=== PATIENT | male | born 1980 | race Caucasian/White ===

== ENCOUNTER → 2020-12-19 12:56 | Outpatient (CLI) | payer OTHER, SELFPAY ==
--- NOTE | 2020-12-19 | DI.ECHO.S_ITS ---
[facility]---------+ [facility] +---------+ : : [address] : [address] : : : : [id number] : : : : Phone: [phone]---------+ Echocardiogram Report + + :Name: LUCIANO VELEZ Study Date: 12/19/2020 Height: 71 in : :[facility] ReadingLocation: Weight: 232 lb : : Gender: Male BSA: 2.2 m2 : :: 1980 Age: 40 yrs BP: 136/97 mmHg: :Reason For Study: RIGHT BUNDLE BRANCH BLOCK : :Ordering Physician: LASHON, : :LUCY Performed By: Virginia Mccormack : :Referring: LUCY MARISCAL : + + Interpretation Summary 1) Normal left ventricular thickness, size, wall motion, and systolic function (EF 60-65%). 2) Normal right ventricular size and function. 3) No significant valvular abnormalities. 4) No prior Echo available for comparison. Procedure: A two-dimensional transthoracic echocardiogram with color flow and Doppler was performed. The study quality was technically adequate. There is no prior echocardiogram noted for this patient. The patient was in sinus rhythm with heart rates between 67-72 bpm during the exam. Left Ventricle: The left ventricle is normal in size and wall thickness. The ejection fraction is estimated to be 55-60%. Left ventricular systolic function appears normal without focal wall motion abnormalities. Diastolic parameters suggest probable normal left ventricular diastolic function and normal filling pressures. Right Ventricle: The right ventricle is normal in size and function. The right ventricular systolic function is normal. Atria: The left atrial size is normal. Right atrial size is normal. There is no Doppler evidence for an interatrial shunt. Mitral Valve: The mitral valve is normal in structure and function. There is mild mitral regurgitation. Aortic Valve: The aortic valve is trileaflet. The aortic valve opens well. There is no aortic valve stenosis. No aortic regurgitation is present. Tricuspid Valve: The tricuspid valve is normal in structure and function. There is mild tricuspid regurgitation. The right ventricular systolic pressure is estimated to be at least 22 mmHg based on an estimated right atrial pressure of 3 mm Hg. Pulmonic Valve: The pulmonic valve leaflets are thin and pliable; valve motion is normal. There is mild pulmonic regurgitation. Great Vessels: The aortic root is normal size. The dimensions of the ascending aorta are normal. The IVC is of normal diameter and collapses greater than 50% with a sniff. This suggests a low right atrial pressure of 3 mm Hg. Pericardium/ Pleura There is no pericardial effusion. There is no pleural effusion. MMode/2D Measurements & Calculations LVIDd: 5.4 cm LVOT diam: 2.4 cm LVIDs: 3.8 cm Ao root diam: 3.8 cm FS: 30.0 % asc Aorta Diam: 3.0 cm IVSd: 0.97 cm Ao Arch Diam (Prox Trans): 2.6 cm LVPWd: 0.80 cm LV tucker. diameter/BSA (cm/m^2): 2.4 LV sys. diameter/BSA (cm/m^2): 1.7 LA A2 area: 19.7 cm2 RA long axis: 5.1 cm LA A4 area: 14.6 cm2 RA area: 16.6 cm2 LA length (vol): 4.7 cm RA vol: 46.4 ml LA vol: 52.1 ml RA : 20.6 ml/m2 LA vol index: 23.2 ml/m2 IVC diam: 1.2 cm RVD1 (basal): 3.9 cm TAPSE: 2.5 cm Doppler Measurements & Calculations Ao V2 max: 109.6 cm/sec LVOT Max Christophe: 64.7 cm/sec Ao V2 mean: 83.5 cm/sec LV V1 max P.7 mmHg Ao max P.8 mmHg LV V1 VTI: 14.3 cm Ao mean P.0 mmHg YESSICA(I,D): 2.7 cm2 Ao V2 VTI: 24.5 cm YESSICA(V,D): 2.7 cm2 sev ratio: 0.58 YESSICA indexed to BSA (cm^2/m^2): 1.2 MV E max christophe: 87.6 cm/sec TR max christophe: 219.0 cm/sec MV A max christophe: 59.9 cm/sec TR max P.2 mmHg MV E/A: 1.5 PA V2 max: 102.5 cm/sec Med Peak E' Christophe: 7.2 cm/sec PA V2 mean: 72.3 cm/sec E/E' med: 12.2 PA mean P.3 mmHg Lat Peak E' Christophe: 9.6 cm/sec PA pr(Accel): 24.2 mmHg E/E' lat: 9.2 E/e' average: 10.7 MV dec time: 0.22 sec SVLVOT): 66.5 ml Reading Physician:05:09 PM
--- NOTE | 2020-12-19 18:57 | DI.NM.S_ITS ---
DATE OF SERVICE: 12/19/2020 PROCEDURE PERFORMED: Exercise treadmill stress test without imaging. ORDERING PROVIDER: Dr. Joe Mariscal. INDICATIONS: The patient is a 40-year-old male with hyperlipidemia, RBBB, and occasional PVCs. EXERCISE TREADMILL TESTIN. The patient was able to exercise for 12 minutes, 23 seconds on a standard Jamal protocol suggesting average exercise capacity, JESUS 0%, achieving 12.8 METs. 2. He had a normal heart rate and blood pressure response to exercise, achieving a maximum heart rate of 180 BPM (100% of his predicted maximum), although was mildly hypertensive at rest at 140/100. 3. He had no chest discomfort or other anginal symptom with exercise. 4. His resting ECG shows normal sinus rhythm with a RBBB with associated repolarization abnormality but there were no significant ST-segment shifts with exercise. He had occasional isolated PACs and PVCs with exercise, but no complex or concerning arrhythmia. IMPRESSION: 1. Normal exercise treadmill study for ischemia. 2. Average exercise capacity without angina with occasional PVCs with stress, but no concerning or complex arrhythmias noted. Kodi Bell - NILDA/francisco/nadia doc#: [id number]/job#: [id number] dd: 12/19/2020 17:03:00 dt: 12/19/2020 18:04:00 DICTATING /COPIES TO: Lex Hernandez MD; Kan Mariscal MD COPIES MNE: IMAN;
== END ==
PROVIDERS: Referring Provider Internal Medicine Cardiovascular Disease; Visit Provider Internal Medicine Cardiovascular Disease
DX: I08.1 Rheumatic disorders of both mitral and tricuspid valves (principal); I45.10 Unspecified right bundle-branch block; I49.3 Ventricular premature depolarization; E78.5 Hyperlipidemia, unspecified
CPT/HCPCS: 93017; 93306